=== PATIENT | female | born 1970 | race Caucasian/White ===

== ENCOUNTER 2017-03-05 00:55 | Emergency (ER) | payer SELFPAY | END 2017-03-05 01:30 | disposition left against medical advice (07) | LOC: ER 00:55 | DX: M79.643 Pain in unspecified hand (principal) ==

== ENCOUNTER 2017-03-05 03:18 | Emergency (ER) | payer MEDICAID ==
[~2017-03-05] VITALS: Ht 160 cm; Wt 93.0 kg
[2017-03-05] MEDS ORDERED: IBUPROFEN 600MG TABLET PO ONE (04:45)
[2017-03-05 05:55] VITALS: BP 132/71
== END 2017-03-05 06:09 | disposition home or self-care (01) ==
LOC: ER 03:19
DX: M79.641 Pain in right hand (principal); I10 Essential (primary) hypertension; Z90.49 Acquired absence of other specified parts of digestive tract
CPT/HCPCS: 73130; 81025; 99284; Z7610